=== PATIENT | male | born 1985 | race African-American/Black ===

== ENCOUNTER 2017-08-04 22:23 | Emergency (ER) | payer SELFPAY ==
--- NOTE | ~2017-08-04 | ER ---
PATIENT'S NAME: MAURO FRAUSTO [facility] AGE: 31 Y [address] ROOM: [place] [id number] LOCATION: [facility] ADMIT DATE: 08/04/2017 ER/Outpatient Report DISCHARGE DATE: 08/04/2017 FAMILY PHYSICIAN: PHYSICIAN, NO ATTENDING PHYSICIAN: Jaswant Bean Time of Evaluation: 2230 hours. HISTORY OF PRESENT ILLNESS: The patient is a 31-year-old black male, who presents complaining of bilateral hand numbness. Said, it has been present for about 3 weeks. He denied the numbness did radiate up his left forearm or arm. He denies any significant weakness. The patient does do a lot of repetitive motion and work with his hands. ALLERGIES: NONE. HOME MEDICATIONS: None. MEDICAL HISTORY: He has a history of asthma. PREVIOUS SURGERY: None. SOCIAL HISTORY: A smoker, half a pack a day. Does use marijuana fairly infrequently. 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 REVIEW OF SYSTEMS: GENERAL HEALTH: No recent fevers. HEENT: He does complain of a headache tonight. He has had no visual changes. No stiff neck. RESPIRATORY: No cough or shortness of breath. CARDIOVASCULAR: No history of murmurs. GASTROINTESTINAL: Denies any weight loss, change in bowel habits. NEURO/PSYCH: He complains of numbness involving both hands, left is worse. However, he denies any nighttime hand numbness. PHYSICAL EXAMINATION: VITAL SIGNS: On exam, his initial blood pressure was 190/101, his temperature was 98.3, his respiratory rate 70, pulse 81, O2 sats 99%. PATIENT'S NAME: MAURO FRAUSTO [facility] AGE: 31 Y [address] ROOM: [place] [id number] LOCATION: [facility] ADMIT DATE: 08/04/2017 ER/Outpatient Report DISCHARGE DATE: 08/04/2017 FAMILY PHYSICIAN: PHYSICIAN, NO ATTENDING PHYSICIAN: Jaswant Bean GENERAL APPEARANCE: Alert, oriented, but anxious. HEENT: Both pupils were reactive to light. He had no nuchal rigidity. LUNGS: Lung sounds were clear. HEART: Rhythm was regular. No murmurs noted. ABDOMEN: Firm, but nontender. EXTREMITIES: He had good radial pulses bilaterally. His Tinel sign was negative. Phalen test was somewhat positive, especially on the left. Urologically, there was no facial droop. No visual field losses. He had good strength in both hands. Speech was clear. LABORATORY DATA AND X-RAYS: His CT was normal. His lab work, CMS: Calcium was just slightly low at 8.4 with normal being 8.5. CBC: White count 6.8, his hemoglobin 14.3. ASSESSMENT: Bilateral hand numbness, suspect possible carpal tunnel syndrome. PLAN: The patient was given a handout on carpal tunnel. We will put him on Naprosyn 500 one b.i.d. Recommend he try to avoid a lot of repetitive motion. The patient is to follow up with his primary care within the next 4 to 5 days if symptoms do not improve. The patient verbalized understanding of his take home instructions. LASHA QUINN FOR DO LYNDA JERRY/angelique /[id number] d: 08/05/17 0103 t: 08/07/17 1938, OUTPATIENT REPORT
[2017-08-04 23:02] LABS: BASOPHIL # 0.1 K/uL (0.0-0.2); BASOPHIL % 1.2 %; EOSINOPHIL % 0.6 %; HEMATOCRIT 41.3 % (37.0-53.0); HEMOGLOBIN 14.3 g/dL (12.0-17.0); IMMATURE GRANULOCYTE % 0.1 %; LYMPHOCYTE # 1.8 K/uL (0.8-4.0); MCH 29.9 pg (27.0-34.0); MCHC 34.6 gm/dL (32.0-36.5); MCV 86.2 fl (83.0-98.0); MONOCYTE # 0.5 K/uL (0.0-1.0); MONOCYTE % 7.6 %; MPV 10.3 fl (9.4-12.4); NEUTROPHIL # (ANC) 4.3 K/uL (1.4-9.0); NEUTROPHIL % 63.5 %; NRBC % 0.3 /100WBC (0-0.00); PLATELET COUNT 228 K/uL (150-450); RBC 4.79 M/uL (4.00-6.00); WBC 6.8 K/uL (4.0-11.0)
[2017-08-04 23:18] LABS: ALBUMIN 3.8 gm/dL (3.5-5.0); ALK PHOS 71 IU/L (33-138); ALT 25 IU/L (12-78); ANION GAP 12.8 (10.0-19.0); AST 28 IU/L (10-40); BLOOD UREA NITROGEN 12 mg/dL (6-24); CALCIUM 8.4 mg/dL (8.5-10.5); CHLORIDE 103 mMol/L (96-110); CO2 24 mMol/L (22-32); POTASSIUM 3.8 mMol/L (3.7-5.1); SODIUM 136 mMol/L (135-145); TOTAL BILIRUBIN 0.3 mg/dL (0.0-1.5); TOTAL PROTEIN 8.1 g/dL (6.0-8.4)
== END 2017-08-04 23:46 | disposition disaster alternative care site (69) ==
LOC: GMED 22:23
PROVIDERS: Emergency Medicine
DX: R20.0 Anesthesia of skin (principal); F17.210 Nicotine dependence, cigarettes, uncomplicated; J45.909 Unspecified asthma, uncomplicated